=== PATIENT | female | born 1990 | race Caucasian/White ===

== ENCOUNTER 2020-04-25 15:09 | Outpatient (RCR) | payer MEDICAID | END 2020-07-07 16:30 | LOC: PT | DX: M54.5 Low back pain (principal) ==

== ENCOUNTER 2020-06-15 14:01 | Outpatient (RCR) | payer MEDICAID | END 2020-08-05 17:00 | disposition home or self-care (01) | LOC: OT 14:01 | DX: G56.03 Carpal tunnel syndrome, bilateral upper limbs (principal) ==

== ENCOUNTER 2022-04-13 22:00 | Emergency (ER) | payer MEDICAID ==
[~2022-04-13] VITALS: Wt 110.5 kg
[2022-04-13] MEDS ORDERED: WELLBUTRIN XL150 M2 PO (22:15)
[2022-04-13] MEDS ORDERED: CELEXA 20MG20 MG/TA1 PO (22:17)
[2022-04-13] MEDS ORDERED: VALACYCLOVIR500 MG PO (22:47)
[2022-04-13 22:56] VITALS: BP 114/65
== END 2022-04-13 22:56 | disposition home or self-care (01) ==
LOC: ED 22:00
DX: A60.1 Herpesviral infection of perianal skin and rectum (principal)